=== PATIENT | male | born 1945 | race Caucasian/White ===

== ENCOUNTER → 2020-12-26 12:52 | Outpatient (BNVA) | payer MEDICARE, MEDICAID, SELFPAY | PROVIDERS: PCP Nurse Practitioner Family; Visit Provider Internal Medicine Cardiovascular Disease | DX: I25.10 Atherosclerotic heart disease of native coronary artery without angina pectoris (principal); J96.11 Chronic respiratory failure with hypoxia | CPT/HCPCS: 93005; 99212 ==